=== PATIENT | female | born 2000 | race African-American/Black ===

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

== ENCOUNTER 2020-03-21 17:10 | Emergency (ER) | payer OTHER, SELFPAY ==
--- OUTSIDE RECORDS SUMMARY | 2020-03-21 17:12 | XMS REPORT ---
:2000 Author Organization [facility] t Address [address] [place] [address] Dr. De La Rosa [address] [place] [id number] Care Team Providers Name Role Phone Unavailable Unavailable Unavailable Problems This patient has no known problems. Allergies, Adverse Reactions, Alerts This patient has no known allergies or adverse reactions. Medications This patient has no known medications.
--- NOTE | 2020-03-21 19:26 | ER ---
Nurse's Notes [facility] Name: Isaac Hollins Age: 19 yrs Sex: Female : 2000 Arrival Date: 03/21/2020 Time: 17:14 Bed 16 Private MD: Diagnosis: Streptococcal tonsillitis Presentation: 03/21 17:18 Chief complaint: Patient states: sore throat x 1 day. Coronavirus screen: Proceed with sv normal triage. Patient denies a cough. Patient denies shortness of breath or difficulty breathing. Patient denies measured and/or subjective temperature greater than 100.4F prior to today's visit. Patient denies travel on a cruise ship or to a country the [facility] currently lists as an affected area. Patient denies contact with known and/or suspected case of COVID-19. Ebola Screen: No symptoms or risks identified at this time. Risk Assessment: Do you want to hurt yourself or someone else? Patient reports no desire to harm self or others. Onset of symptoms was March 20, 2020. 17:18 Method Of Arrival: Ambulatory sv 17:18 Acuity: JANIE 4 sv 17:19 Initial Sepsis Screen: Does the patient meet any 2 criteria? No. Patient's initial sv sepsis screen is negative. Does the patient have a suspected source of infection? No. Patient's initial sepsis screen is negative. Triage Assessment: 17:22 General: Appears in no apparent distress. comfortable, Behavior is calm, cooperative, sv appropriate for age. Pain: Complains of pain in left aspect of posterior pharynx and right aspect of posterior pharynx. EENT: Oral mucosa is moist. Throat is clear has patchy exudate has enlarged tonsils bilaterally. Neuro: Level of Consciousness is awake, alert, obeys commands, Gait is steady. Respiratory: Respiratory effort is even, unlabored. Historical: - Allergies: 17:15 No Known Allergies; sv - PMHx: 17:15 None; sv - PSHx: 17:15 None; sv - Immunization history:: Adult Immunizations up to date. - Social history:: Smoking status: Patient denies any tobacco usage or history of. Screenin:15 Abuse screen: Denies threats or abuse. Nutritional screening: No deficits noted. jb4 Tuberculosis screening: No symptoms or risk factors identified. Fall Risk None identified. Assessment: 19:15 General: Appears in no apparent distress. comfortable, Behavior is calm, cooperative, jb4 appropriate for age. Pain: Complains of pain in throat Pain does not radiate. Pain currently is 4 out of 10 on a pain scale. Neuro: Level of Consciousness is awake, alert, obeys commands, Oriented to person, place, time, situation. Cardiovascular: Patient's skin is warm and dry. Respiratory: Airway is patent Respiratory effort is even, unlabored, Respiratory pattern is regular, symmetrical. GI: No signs and/or symptoms were reported involving the gastrointestinal system. : No signs and/or symptoms were reported regarding the genitourinary system. EENT: Reports pain in Throat. Derm: Skin is intact, Skin is dry, Skin is normal, Skin temperature is warm. Musculoskeletal: Circulation, motion, and sensation intact. Range of motion: intact in all extremities. Vital Signs: 17:19 BP 121 / 70; Pulse 88; Resp 16; Temp 98.2; Pulse Ox 100% ; Weight 83.01 kg; Height 5 sv ft. 10 in. (177.80 cm); 19:30 BP 116 / 79; Pulse 88; Resp 16; Pulse Ox 100% on R/A; jb4 17:19 Body Mass Index 26.26 (83.01 kg, 177.80 cm) sv ED Course: 17:14 Patient arrived in ED. mr 17:14 Arm band placed on. sv 17:19 Triage completed. sv 18:44 Herman Burnett MD is Attending Physician. [facility] 18:50 Benedict Patino, RN is Primary Nurse. em 19:15 Patient has correct armband on for positive identification. Bed in low position. Call jb4 light in reach. Side rails up X 1. Pulse ox on. NIBP on. 19:35 No provider procedures requiring assistance completed. Patient did not have IV access jb4 during this emergency room visit. 19:48 Primary Nurse role handed off by Benedict Patino, RU jb4 19:48 Paxton Graham, RU is Primary Nurse. jb4 Administered Medications: 19:35 Drug: Augmentin 875 mg Route: PO; jb4 19:35 Follow up: Response: Medication administered at discharge. jb4 Outcome: 19:25 Discharge ordered by . [facility] 19:35 Discharged to home ambulatory. jb4 19:35 Condition: stable 19:35 Discharge instructions given to patient, Instructed on discharge instructions, follow up and referral plans. medication usage, Demonstrated understanding of instructions, follow-up care, medications, Prescriptions given X 1. 19:48 Patient left the ED. jb4 Signatures: Danielle Vogel, RN Herman Cat MD MD cha Rivera, Mary mr Benedict Patino RN RN em Bryson, James, RN RN jb4 Corrections: (The following items were deleted from the chart) 17:21 17:19 Pulse 88bpm; Resp 16bpm; Pulse Ox 100%; Temp 98.2F; 83.01 kg; Height 5 ft. 10 sv in.; BMI: 26.2; sv
--- NOTE | 2020-03-21 19:27 | EDPHYS ---
Physician Documentation [facility] Name: Isaac Hollins Age: 19 yrs Sex: Female : 2000 Arrival Date: 03/21/2020 Time: 17:14 Bed 16 Private MD: ED Physician Herman Burnett HPI: 03/21 19:21 This 19 yrs old Black Female presents to ER via Ambulatory with complaints of Sore franco Throat. 19:21 The patient presents with sore throat. The patient describes throat pain as burning, franco raw, scratchy. Onset: The symptoms/episode began/occurred 2 day(s) ago. Severity of symptoms: At their worst the symptoms were mild, moderate, in the emergency department the symptoms are unchanged. Modifying factors: The symptoms are alleviated by nothing, the symptoms are aggravated by fluids, swallowing. Associated signs and symptoms: Pertinent positives: Sore throat. The patient has not experienced similar symptoms in the past. Historical: - Allergies: 17:15 No Known Allergies; sv - PMHx: 17:15 None; sv - PSHx: 17:15 None; sv - Immunization history:: Adult Immunizations up to date. - Social history:: Smoking status: Patient denies any tobacco usage or history of. ROS: 19:23 Constitutional: Negative for fever, chills, and weight loss, Eyes: Negative for injury, franco pain, redness, and discharge, Neck: Negative for injury, pain, and swelling, Cardiovascular: Negative for chest pain, palpitations, and edema, Respiratory: Negative for shortness of breath, cough, wheezing, and pleuritic chest pain, Abdomen/GI: Negative for abdominal pain, nausea, vomiting, diarrhea, and constipation, Back: Negative for injury and pain, : Negative for injury, bleeding, discharge, and swelling, MS/Extremity: Negative for injury and deformity, Skin: Negative for injury, rash, and discoloration, Neuro: Negative for headache, weakness, numbness, tingling, and seizure, Psych: Negative for depression, anxiety, suicide ideation, homicidal ideation, and hallucinations, Allergy/Immunology: Negative for hives, rash, and allergies, Endocrine: Negative for neck swelling, polydipsia, polyuria, polyphagia, and marked weight changes, Hematologic/Lymphatic: Negative for swollen nodes, abnormal bleeding, and unusual bruising. 19:23 ENT: Positive for sore throat. Exam: 19:23 Constitutional: This is a well developed, well nourished patient who is awake, alert, franco and in no acute distress. Head/Face: Normocephalic, atraumatic. Eyes: Pupils equal round and reactive to light, extra-ocular motions intact. Lids and lashes normal. Conjunctiva and sclera are non-icteric and not injected. Cornea within normal limits. Periorbital areas with no swelling, redness, or edema. Neck: Trachea midline, no thyromegaly or masses palpated, and no cervical lymphadenopathy. Supple, full range of motion without nuchal rigidity, or vertebral point tenderness. No Meningismus. Chest/axilla: Normal chest wall appearance and motion. Nontender with no deformity. No lesions are appreciated. Cardiovascular: Regular rate and rhythm with a normal S1 and S2. No gallops, murmurs, or rubs. Normal PMI, no JVD. No pulse deficits. Respiratory: Lungs have equal breath sounds bilaterally, clear to auscultation and percussion. No rales, rhonchi or wheezes noted. No increased work of breathing, no retractions or nasal flaring. Abdomen/GI: Soft, non-tender, with normal bowel sounds. No distension or tympany. No guarding or rebound. No evidence of tenderness throughout. Back: No spinal tenderness. No costovertebral tenderness. Full range of motion. Skin: Warm, dry with normal turgor. Normal color with no rashes, no lesions, and no evidence of cellulitis. MS/ Extremity: Pulses equal, no cyanosis. Neurovascular intact. Full, normal range of motion. Neuro: Awake and alert, GCS 15, oriented to person, place, time, and situation. Cranial nerves II-XII grossly intact. Motor strength 5/5 in all extremities. Sensory grossly intact. Cerebellar exam normal. Normal gait. Psych: Awake, alert, with orientation to person, place and time. Behavior, mood, and affect are within normal limits. 19:23 ENT: Posterior pharynx: Tonsils: bilaterally enlarged, Uvula: normal, swelling, that is mild, erythema, that is moderate, exudate, is not appreciated, peritonsillar mass, is not appreciated, pooling of secretions, is not appreciated. Vital Signs: 17:19 BP 121 / 70; Pulse 88; Resp 16; Temp 98.2; Pulse Ox 100% ; Weight 83.01 kg; Height 5 sv ft. 10 in. (177.80 cm); 19:30 BP 116 / 79; Pulse 88; Resp 16; Pulse Ox 100% on R/A; jb4 17:19 Body Mass Index 26.26 (83.01 kg, 177.80 cm) sv MDM: 18:44 Patient medically screened. [facility] 19:24 Data reviewed: vital signs, nurses notes, lab test result(s). [facility] 19:26 Differential diagnosis: cocksackie virus, epiglottitis, group A strep tonsillitis, franco mononucleosis, tonsillitis, upper respiratory infection, uvulitis. Data interpreted: facility practice specialist: not applicable for this patient encounter. Test interpretation: by ED physician or midlevel provider: not applicable. Counseling: I had a detailed discussion with the patient and/or guardian regarding: the historical points, exam findings, and any diagnostic results supporting the discharge/admit diagnosis, lab results, the need for outpatient follow up, for definitive care. ED course: strep pos, treated, pt explained results, non toxic. 03/21 17:20 Order name: Strep sv Administered Medications: 19:35 Drug: Augmentin 875 mg Route: PO; jb4 19:35 Follow up: Response: Medication administered at discharge. jb4 Disposition: 03/21/20 19:25 Discharged to Home. Impression: Streptococcal tonsillitis. - Condition is Stable. - Discharge Instructions: Sore Throat, Tonsillitis, Tonsillitis, [id number], Sore Throat, [id number]. - Prescriptions for Augmentin 875- 125 mg Oral Tablet - take 1 tablet by ORAL route every 12 hours for 10 days; 20 tablet. - Medication Reconciliation Form, Thank You Letter, Antibiotic Education, Prescription Opioid Use form. - Follow up: Private Physician; When: 2 - 3 days; Reason: Recheck today's complaints, Re-evaluation by your physician. - Problem is new. - Symptoms have improved. Signatures: Dispatcher [employer] EDMS Danielle Vogel RN RN sv Anderson, Corey, MD MD cha Bryson, James, RN RN jb4 Corrections: (The following items were deleted from the chart) 19:48 19:25 03/21/2020 19:25 Discharged to Home. Impression: Streptococcal tonsillitis. jb4 Condition is Stable. Forms are Medication Reconciliation Form, Thank You Letter, Antibiotic Education, Prescription Opioid Use. Follow up: Private Physician; When: 2 - 3 days; Reason: Recheck today's complaints, Re-evaluation by your physician. Problem is new. Symptoms have improved. franco
[2020-03-21] MEDS ORDERED: AMOX/K CLAV 875 MG TAB ONE (19:39)
[2020-03-21 19:54] VITALS: BP 121/70; TEMP 98.2; O2SAT 100
== END 2020-03-21 19:48 | disposition home or self-care (01) ==
LOC: ER 17:10
DX: J03.00 Acute streptococcal tonsillitis, unspecified (principal)
CPT/HCPCS: 87081; 99283

== ENCOUNTER 2021-03-21 04:25 | Emergency (ER) | payer SELFPAY ==
--- OUTSIDE RECORDS SUMMARY | 2021-03-21 04:28 | XMS REPORT | Continuity of Care Document ---
:2000 Author Organization [facility] t Address [address] [place] [address] Dr. De La Rosa [address] [place] [id number] Care Team Providers Name Role Phone Unavailable Unavailable Unavailable Problems This patient has no known problems. Allergies, Adverse Reactions, Alerts This patient has no known allergies or adverse reactions. Medications This patient has no known medications. Procedures This patient has no known procedures. Results This patient has no known results.
[2021-03-21 05:03] LABS: Absolute Lymphocytes (CBC) 2.8 K/uL (0.7-4.9); Basophils % 0.6 % (0-1.3); Hematocrit 36.2 % (36.0-45.0); Lymphocytes % 24.1 % (15.3-44.8); MPV 8.4 fL (7.6-11.3); RBC Red Blood Cell Count 4.54 M/uL (3.86-4.86)
[2021-03-21] MEDS ORDERED: NA CHLORIDE 0.9% 1,000 ML ONE (05:12)
[2021-03-21 05:13] LABS: Protime INR 0.96
[2021-03-21 05:34] LABS: ALT/SGPT 14 U/L (12-78); AST/SGOT 11 U/L (15-37); Albumin 3.8 g/dL (3.4-5.0); Alkaline Phosphatase 86 U/L (45-117); BUN Blood Urea Nitrogen 7 mg/dL (7-18); Bicarbonate 25 mmol/L (21-32); Bilirubin Direct < 0.1 mg/dL (0-0.2); Bilirubin Total 0.3 mg/dL (0.2-1.0); Creatine Phosphokinase 103 U/L (26-192); Glucose Level 99 mg/dL (74-106); Potassium 3.3 mmol/L (3.5-5.1); Protein, Total 7.6 g/dL (6.4-8.2); Sodium Level 143 mmol/L (136-145); Troponin (Emerg Dept Use Only) < 0.02 ng/mL (0.0-0.045)
[2021-03-21 06:47] LABS: Urine Blood Negative (Negative); Urine Glucose Negative (Negative); Urine Protein Negative (Negative)
[2021-03-21 07:27] LABS: Barbiturates NEGATIVE (NEGATIVE); Benzodiazepines NEGATIVE (NEGATIVE); Cocaine NEGATIVE (NEGATIVE); METHAMPHETAM NEGATIVE (NEGATIVE); Methadone NEGATIVE (NEGATIVE); Opiates NEGATIVE (NEGATIVE); Phencyclidine NEGATIVE (NEGATIVE); THC Cannibis POSITIVE (NEGATIVE)
--- NOTE | 2021-03-21 07:37 | EDPHYS ---
Physician Documentation [facility] Name: Isaac Hollins Age: 20 yrs Sex: Female : 2000 Arrival Date: 03/21/2021 Time: 04:35 Bed 6 Private MD: ED Physician Peng Sandoval HPI: 03/21 05:06 This 20 yrs old Black Female presents to ER via Ambulatory with complaints of Anxiety, mh7 Chest Pain. 05:06 The patient presents to the emergency department with anxiety, over unknown mh7 circumstances. Onset: The symptoms/episode began/occurred today. Past psychiatric history: Prior diagnosis: no previous psychiatric diagnosis known, Psychiatric medications include: none, Primary psychiatric physician: the patient does not have a primary psychiatric physician, the patient has not had a prior suicide gesture, the patient does not have a previous inpatient psychiatric history. Associated signs and symptoms: Pertinent positives; anxiety, chest pain, substance abuse, Pertinent negatives: abdominal pain, chills, delusions, depression, fever, hallucinations, headache, homicidal ideation, nausea, night sweats, palpitations, paranoia, shortness of breath, suicide ideation, tremor, vomiting. Severity of symptoms: At their worst the symptoms were moderate today, in the emergency department the symptoms have improved mildly. States that she was driving this morning then started feeling anxious. She admits to drinking alcohol and smoking marijuana.. 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 - Social history:: Smoking status: Patient reports the use of cigarette tobacco products, denies chronic smoking, but will smoke occasionally, Patient uses alcohol, occasionally. pt states she has had a few drinks tonight. Patient/guardian denies using street drugs. ROS: 05:06 Constitutional: Negative for fever, chills, and weight loss, Eyes: Negative for injury, mh7 pain, redness, and discharge, ENT: Negative for injury, pain, and discharge, Neck: Negative for injury, pain, and swelling, Respiratory: Negative for shortness of breath, cough, wheezing, and pleuritic chest pain, Abdomen/GI: Negative for abdominal pain, nausea, vomiting, diarrhea, and constipation, Back: Negative for injury and pain, : Negative for injury, bleeding, discharge, and swelling, MS/Extremity: Negative for injury and deformity, Skin: Negative for injury, rash, and discoloration, Neuro: Negative for headache, weakness, numbness, tingling, and seizure, Allergy/Immunology: Negative for hives, rash, and allergies, Endocrine: Negative for neck swelling, polydipsia, polyuria, polyphagia, and marked weight changes, Hematologic/Lymphatic: Negative for swollen nodes, abnormal bleeding, and unusual bruising. Exam: 05:06 Head/Face: Normocephalic, atraumatic. Eyes: Pupils equal round and reactive to light, mh7 extra-ocular motions intact. Lids and lashes normal. Conjunctiva and sclera are non-icteric and not injected. Cornea within normal limits. Periorbital areas with no swelling, redness, or edema. Neck: Trachea midline, no thyromegaly or masses palpated, and no cervical lymphadenopathy. Supple, full range of motion without nuchal rigidity, or vertebral point tenderness. No Meningismus. Chest/axilla: Normal chest wall appearance and motion. Nontender with no deformity. No lesions are appreciated. Cardiovascular: Regular rate and rhythm with a normal S1 and S2. No gallops, murmurs, or rubs. Normal PMI, no JVD. No pulse deficits. Respiratory: Lungs have equal breath sounds bilaterally, clear to auscultation and percussion. No rales, rhonchi or wheezes noted. No increased work of breathing, no retractions or nasal flaring. Abdomen/GI: Soft, non-tender, with normal bowel sounds. No distension or tympany. No guarding or rebound. No evidence of tenderness throughout. Back: No spinal tenderness. No costovertebral tenderness. Full range of motion. Skin: Warm, dry with normal turgor. Normal color with no rashes, no lesions, and no evidence of cellulitis. MS/ Extremity: Pulses equal, no cyanosis. Neurovascular intact. Full, normal range of motion. Neuro: Awake and alert, GCS 15, oriented to person, place, time, and situation. Cranial nerves II-XII grossly intact. Motor strength 5/5 in all extremities. Sensory grossly intact. Cerebellar exam normal. Normal gait. 05:06 Constitutional: The patient appears in no acute distress, alert, awake, anxious. 05:06 Psych: Behavior/mood is cooperative, anxious, Affect is calm, Oriented to person, place, time, Patient has no thoughts/intents to harm self or others. Judgement / Insight is normal. Memory is normal. Delusions/hallucinations are not present. Vital Signs: 04:36 BP 124 / 74; Pulse 88; Resp 16 S; Temp 98.1(O); Pulse Ox 96% on R/A; Weight 75.75 kg bb (R); Height 5 ft. 9 in. (175.26 cm) (R); Pain 0/10; 04:37 BP 124 / 74; Pulse 105; Resp 16; Pulse Ox 100% ; ea 05:12 BP 100 / 60; Pulse 78; Resp 18; Pulse Ox 98% ; ea 04:36 Body Mass Index 24.66 (75.75 kg, 175.26 cm) bb MDM: 07:34 Differential diagnosis: drug withdrawal. Alcohol Intoxication, Substance Abuse. Data [facility] reviewed: vital signs, nurses notes, lab test result(s), cardiac enzymes, CBC, drug level(s), electrolytes, urinalysis, urine drug screen, UPT: negative EKG, radiologic studies, plain films. Data interpreted: Pulse oximetry: on room air is 98 %. Interpretation: normal. Counseling: I had a detailed discussion with the patient and/or guardian regarding: the historical points, exam findings, and any diagnostic results supporting the discharge/admit diagnosis, lab results, radiology results, the need for outpatient follow up, to return to the emergency department if symptoms worsen or persist or if there are any questions or concerns that arise at home. Response to treatment: the patient's symptoms have resolved after treatment, the patient's blood pressure is in an acceptable range, mental status has returned to baseline, the patient no longer shows bradycardia, the patient is not short of breath, the patient is not tachycardic, the patient's pain is gone, the patient's temperature has normalized. 07:[address] [facility] 03/21 04:42 Order name: Acetaminophen [facility] 03/21 04:42 Order name: Basic Metabolic Panel [facility] 03/21 04:42 Order name: CBC with Diff [facility] 03/21 04:42 Order name: ETOH Level [facility] 03/21 04:42 Order name: Hepatic Function [facility] 03/21 04:42 Order name: PT-INR [facility] 03/21 04:42 Order name: Ptt, Activated [facility] 03/21 04:42 Order name: Salicylate; Complete Time: 06:07 [facility] 03/21 04:42 Order name: Urine Drug Screen; Complete Time: 07:33 [facility] 03/21 04:43 Order name: Acetaminophen Level; Complete Time: 05:42 EDMS 03/21 04:43 Order name: Basic Metabolic Panel; Complete Time: 05:42 EDMS 03/21 04:43 Order name: CBC with Automated Diff; Complete Time: 05:11 EDMS 03/21 04:43 Order name: Alcohol Serum/Plasma; Complete Time: 05:42 EDMS 03/21 04:43 Order name: Liver (Hepatic) Function; Complete Time: 05:42 EDMS 03/21 04:42 Order name: Urine Test (obtain specimen); Complete Time: 06:42 [facility] 03/21 04:42 Order name: EKG; Complete Time: 04:43 [facility] 03/21 04:42 Order name: EKG - Nurse/Tech; Complete Time: 04:43 [facility] 03/21 04:42 Order name: IV Saline Lock; Complete Time: 04:58 [facility] 03/21 04:42 Order name: Labs collected and sent; Complete Time: 04:58 [facility] 03/21 04:42 Order name: Urine Dipstick-Ancillary (obtain specimen); Complete Time: 06:41 [facility] 03/21 04:43 Order name: Protime (+INR); Complete Time: 05:27 [facility] 03/21 04:43 Order name: PTT, Activated Partial Thromb; Complete Time: 05:27 [facility] 03/21 04:43 Order name: Chest Single View XRAY [facility] 03/21 04:43 Order name: Troponin (emerg Dept Use Only); Complete Time: 05:42 [facility] 03/21 04:43 Order name: CPK; Complete Time: 05:42 [facility] 03/21 06:47 Order name: Urine Dipstick-Ancillary; Complete Time: 07:22 [facility] 03/21 06:49 Order name: Urine --Ancillary (enter results) eb Administered Medications: 05:00 Drug: NS 0.9% 1000 ml Route: IV; Rate: 1000 ml; Site: right antecubital; ea Disposition: 03/21/21 07:37 Discharged to Home. Impression: Anxiety Reaction, Marijuana Use. - Condition is Stable. - Discharge Instructions: Cannabis Use Disorder, Panic Attacks, [id number]. - Medication Reconciliation Form, Thank You Letter, Antibiotic Education, Prescription Opioid Use form. - Follow up: Private Physician; When: 1 - 2 days; Reason: Worsening of condition, Recheck today's complaints, Continuance of care, Re-evaluation by your physician. - Problem is new. - Symptoms have improved. Signatures: Dispatcher [employer] EDMS Danielle Vogel RN RN Fay Blanca RN RN Janelle Pettit RN RN ea Holmes, Maurice, MD MD mh7 Corrections: (The following items were deleted from the chart) 06:41 04:42 Suicide Screening ([place]) ordered. mh7 07:57 07:37 03/21/2021 07:37 Discharged to Home. Impression: Anxiety Reaction, Marijuana Use. sv Condition is Stable. Forms are Medication Reconciliation Form, Thank You Letter, Antibiotic Education, Prescription Opioid Use. Follow up: Private Physician; When: 1 - 2 days; Reason: Worsening of condition, Recheck today's complaints, Continuance of care, Re-evaluation by your physician. Problem is new. Symptoms have improved. mh7
--- NOTE | 2021-03-21 07:37 | ER ---
Nurse's Notes [facility] Name: Isaac Hollins Age: 20 yrs Sex: Female : 2000 Arrival Date: 03/21/2021 Time: 04:35 Bed 6 Private MD: Diagnosis: Anxiety Reaction, Marijuana Use Presentation: 03/21 04:36 Chief complaint: Patient states: she was driving home and started feeling light-headed, bb shaking, and her chest felt funny, pt states she has a few drinks tonight. She has had similar symptoms in the past but was not checked at that time. Coronavirus screen: At this time, the client does not indicate any symptoms associated with coronavirus-19. Ebola Screen: No symptoms or risks identified at this time. Initial Sepsis Screen: Does the patient meet any 2 criteria? No. Patient's initial sepsis screen is negative. Does the patient have a suspected source of infection? No. Patient's initial sepsis screen is negative. Risk Assessment: Do you want to hurt yourself or someone else? Patient reports no desire to harm self or others. Onset of symptoms was March 21, 2021. 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 - Social history:: Smoking status: Patient reports the use of cigarette tobacco products, denies chronic smoking, but will smoke occasionally, Patient uses alcohol, occasionally. pt states she has had a few drinks tonight. Patient/guardian denies using street drugs. Screenin:37 Abuse screen: Denies threats or abuse. Nutritional screening: No deficits noted. ea Tuberculosis screening: No symptoms or risk factors identified. Fall Risk None identified. Assessment: 04:40 General: Appears in no apparent distress. Behavior is anxious, Smells of alcohol. Pain: ea Complains of pain in chest Pain does not radiate. Pain began suddenly. Cardiovascular: Patient's skin is warm and dry. Respiratory: Airway is patent Respiratory effort is even, unlabored, Respiratory pattern is regular, symmetrical. Derm: No signs and/or symptoms reported regarding the dermatologic system. 07:56 Reassessment: Patient appears in no apparent distress at this time. Patient and/or sv family updated on plan of care and expected duration. Pain level reassessed. Patient is alert, oriented x 3, equal unlabored respirations, skin warm/dry/pink. Patient states feeling better. Vital Signs: 04:36 BP 124 / 74; Pulse 88; Resp 16 S; Temp 98.1(O); Pulse Ox 96% on R/A; Weight 75.75 kg bb (R); Height 5 ft. 9 in. (175.26 cm) (R); Pain 0/10; 04:37 BP 124 / 74; Pulse 105; Resp 16; Pulse Ox 100% ; ea 05:12 BP 100 / 60; Pulse 78; Resp 18; Pulse Ox 98% ; ea 04:36 Body Mass Index 24.66 (75.75 kg, 175.26 cm) ED Course: 04:35 Patient arrived in ED. bb 04:36 Peng Sandoval MD is Attending Physician. [facility] 04:37 Janelle Gabriel, RN is Primary Nurse. ea 04:37 Patient has correct armband on for positive identification. Bed in low position. Call ea light in reach. Side rails up X 1. forestry adviser on. Pulse ox on. NIBP on. 04:38 Triage completed. bb 04:39 Arm band placed on right wrist. Patient placed in an exam room, on a stretcher, on ea pulse oximetry. 04:45 Inserted saline lock: 20 gauge in right antecubital area, using aseptic technique. ea Blood collected. Patient maintains SpO2 saturation greater than 95% on room air. 04:58 Chest Single View XRAY In Process Unspecified. EDMS 07:11 Primary Nurse role handed off by Janelle Gabriel, RN sv 07:11 Danielle Vogel, RU is Primary Nurse. sv 07:11 Acetaminophen Sent. sv 07:11 Basic Metabolic Panel Sent. sv 07:11 CBC with Diff Sent. sv 07:11 Ptt, Activated Sent. sv 07:11 PT-INR Sent. sv 07:11 Hepatic Function Sent. sv 07:11 ETOH Level Sent. sv 07:56 No provider procedures requiring assistance completed. IV discontinued, intact, sv bleeding controlled, No redness/swelling at site. Pressure dressing applied. Administered Medications: 05:00 Drug: NS 0.9% 1000 ml Route: IV; Rate: 1000 ml; Site: right antecubital; ea Outcome: 07:37 Discharge ordered by MD. campbell 07:56 Discharged to home ambulatory, with family. sv 07:56 Condition: stable 07:56 Discharge instructions given to patient, Instructed on discharge instructions, follow up and referral plans. Demonstrated understanding of instructions, follow-up care. 07:57 Patient left the ED. sv Signatures: Dispatcher [employer] EDDanielle Jefferson RN RN sv Ballard, Brenda RN RN Janelle Pettit RN RN ea Holmes, Maurice, MD MD mh7 Corrections: (The following items were deleted from the chart) 05:00 04:40 General: Appears in no apparent distress. Behavior is calm, cooperative, ea appropriate for age, ea
[2021-03-21 08:02] VITALS: TEMP 98.1
[2021-03-21 08:04] VITALS: BP 100/60; O2SAT 98
--- NOTE | 2021-03-21 09:40 | RAD REPORT ---
EXAM DESCRIPTION: RAD - Chest Single View - 03/21/2021 4:59 am CLINICAL HISTORY: CHEST PAIN Chest pain. COMPARISON: No comparisons FINDINGS: Portable technique limits examination quality. The lungs are grossly clear. The heart is normal in size. No displaced fractures. IMPRESSION: No acute intrathoracic process suspected.
--- NOTE | 2021-03-22 12:14 | EKG ---
Test Date: 2021-03-21 Test Time: 04:32:41 Dry Cleaner Hand: SHRUTHI MEASUREMENT RESULTS: Intervals: Rate: 97 MD: 144 QRSD: 76 QT: 362 QTc: 459 [place]: P: 67 MD: 144 QRS: 72 T: 56 INTERPRETIVE STATEMENTS: Normal sinus rhythm Normal ECG No previous ECG available for comparison Electronically Signed On 03-22-21 12:12:02 CDT by Jakob Ventura
== END 2021-03-21 07:57 | disposition home or self-care (01) ==
LOC: ER 04:25
DX: F41.1 Generalized anxiety disorder (principal); F12.90 Cannabis use, unspecified, uncomplicated; F17.210 Nicotine dependence, cigarettes, uncomplicated; R07.9 Chest pain, unspecified
CPT/HCPCS: 36415; 71045; 80048; 80076; 80307; 80320; 80329; 81003; 81025; 82550; 84484; 85025; 85610; 85730; 93005; 99285; J7030

== ENCOUNTER 2021-06-14 13:32 | Emergency (ER) | payer SELFPAY ==
--- OUTSIDE RECORDS SUMMARY | 2021-06-14 13:33 | XMS REPORT | Continuity of Care Document ---
:[address] [facility] t Address [address] [place] [place] [address] Care Team Providers Name Role Phone Unavailable Unavailable Unavailable Problems This patient has no known problems. Allergies, Adverse Reactions, Alerts This patient has no known allergies or adverse reactions. Medications This patient has no known medications. Procedures This patient has no known procedures. Results This patient has no known results.
--- NOTE | 2021-06-14 14:21 | ER ---
Nurse's Notes [facility] Name: Isaac Hollins Age: 20 yrs Sex: Female : 2000 Arrival Date: 06/14/2021 Time: 14:04 Bed Waiting Private MD: Diagnosis: Laceration without foreign body of foot Presentation: 06/14 14:20 Chief complaint: Patient states: Cut by a metal piece of her bag on the bottom of L ll1 foot [place] night. No fever. Coronavirus screen: Client denies travel out of the [place] in the last 14 days. At this time, the client does not indicate any symptoms associated with coronavirus-19. Ebola Screen: Patient denies travel to an Ebola-affected area in the 21 days before illness onset. Complicating Factors: There are no complicating factors for this patient. Initial Sepsis Screen: Does the patient meet any 2 criteria? No. Patient's initial sepsis screen is negative. Does the patient have a suspected source of infection? Yes: Skin breakdown/wound. Risk Assessment: Do you want to hurt yourself or someone else? Patient reports no desire to harm self or others. Onset of symptoms was June 12, 2021. 14:20 Method Of Arrival: Ambulatory ll1 14:20 Acuity: JANIE 4 ll1 Triage Assessment: 14:20 General: Appears in no apparent distress. Behavior is calm, cooperative, appropriate ll1 for age. Pain: Complains of pain in arch of left foot Quality of pain is described as aching. Derm: <3 cm laceration, no drainage from site. No fever. Injury Description: Laceration sustained to arch of left foot is clean, 0.5 to 2.5 cm long, not bleeding, was sustained 2 days ago. is bleeding no active bleeding noted. Historical: - Allergies: 14:19 No Known Allergies; ll1 - PMHx: 14:19 None; ll1 - PSHx: 14:19 None; ll1 - Immunization history:: Last tetanus immunization: unknown. - Social history:: Smoking status: Patient denies any tobacco usage or history of. Screenin:21 Abuse screen: Denies threats or abuse. Nutritional screening: No deficits noted. ll1 Tuberculosis screening: No symptoms or risk factors identified. Fall Risk Gait- Impaired (20 pts.). Total Reddy Fall Scale indicates No Risk (0-24 pts). Assessment: 14:21 Injury Description: Laceration is clean, 0.5 to 2.5 cm long. ll1 14:21 Musculoskeletal: Circulation, motion, and sensation intact. Capillary refill < 3 ll1 seconds. Vital Signs: 14:20 BP 110 / 69; Pulse 67; Resp 17; Temp 98.3; Pulse Ox 100% ; Weight 83.46 kg; Height 5 ll1 ft. 9 in. (175.26 cm); Pain 6/10; 14:20 Body Mass Index 27.17 (83.46 kg, 175.26 cm) ll1 ED Course: 14:04 Patient arrived in ED. ds1 14:19 Arm band placed on. ll1 14:21 Yani Zhang FNP-C is [facility]. kb 14:21 Kun Barragan MD is Attending Physician. kb 14:21 Triage completed. ll1 14:21 Patient has correct armband on for positive identification. Bed in low position. ll1 Cardiac monitoring not applicable on this patient. 14:26 No provider procedures requiring assistance completed. Patient did not have IV access ll1 during this emergency room visit. Administered Medications: No medications were administered Outcome: 14: Discharge ordered by . kb 14:26 Patient left the ED. ll1 14:26 Discharged to home ambulatory. ll1 14:26 Condition: stable 14:26 Discharge instructions given to patient, Instructed on discharge instructions, follow up and referral plans. medication usage, wound care, Demonstrated understanding of instructions, follow-up care, medications, wound care, Prescriptions given X 1. Signatures: Yani Zhang FNP-C FNP-Briana Hernandez ds1 Mitul Duenas, RN RN ll1
--- NOTE | 2021-06-14 14:21 | EDPHYS ---
Physician Documentation [facility] Name: Isaac Hollins Age: 20 yrs Sex: Female : 2000 Arrival Date: 06/14/2021 Time: 14:04 Bed Waiting Private MD: ED Physician Kun Barragan HPI: 06/14 14:42 This 20 yrs old Black Female presents to ER via Ambulatory with complaints of kb Laceration To Foot. 14:42 The patient has a laceration related to: stepped on a piece of metal in bag occurred at home, and there are no complicating factors. The injury was accidental. The laceration(s) is(are) located on the arch of left foot. Onset: The symptoms/episode began/occurred 3 day(s) ago. Associated signs and symptoms: The patient has no apparent associated signs or symptoms. The patient has not experienced similar symptoms in the past. The patient has not recently seen a physician. Patient reports she stepped on a piece of metal that was on her back on Tuesday causing laceration to the bottom of her foot. Has been cleaning with peroxide and covering with a Band-Aid. . Historical: - Allergies: 14:19 No Known Allergies; ll1 - PMHx: 14:19 None; ll1 - PSHx: 14:19 None; ll1 - Immunization history:: Last tetanus immunization: unknown. - Social history:: Smoking status: Patient denies any tobacco usage or history of. ROS: 14:42 Constitutional: Negative for fever, chills, and weight loss. 14:42 Skin: Positive for laceration(s), of the arch of left foot. 14:42 All other systems are negative. Exam: 14:41 Constitutional: This is a well developed, well nourished patient who is awake, alert, kb and in no acute distress. Head/Face: Normocephalic, atraumatic. ENT: Moist Mucous membranes Respiratory: Respirations even and unlabored. No increased work of breathing, no retractions or nasal flaring. MS/ Extremity: Pulses equal, no cyanosis. Neurovascular intact. Full, normal range of motion. Neuro: Awake and alert, GCS 15, oriented to person, place, time, and situation. Moves all extremities. Normal gait. Psych: Awake, alert, with orientation to person, place and time. Behavior, mood, and affect are within normal limits. 14:41 Skin: injury, laceration(s), the wound is approximately 1.5 cm(s), of the arch of left foot, that can be described as clean, no foreign body, linear, without bleeding. Vital Signs: 14:20 BP 110 / 69; Pulse 67; Resp 17; Temp 98.3; Pulse Ox 100% ; Weight 83.46 kg; Height 5 ll1 ft. 9 in. (175.26 cm); Pain 6/10; 14:20 Body Mass Index 27.17 (83.46 kg, 175.26 cm) ll1 MDM: 14:21 Patient medically screened. kb 14:42 Data reviewed: vital signs, nurses notes. Data interpreted: Pulse oximetry: on room air kb is 100 %. Interpretation: normal. Counseling: I had a detailed discussion with the patient and/or guardian regarding: the historical points, exam findings, and any diagnostic results supporting the discharge/admit diagnosis, the need for outpatient follow up, a family practitioner, to return to the emergency department if symptoms worsen or persist or if there are any questions or concerns that arise at home. Administered Medications: No medications were administered Disposition: 16:04 Co-signature as Attending Physician, Kun Barragan MD. rn Disposition Summary: 06/14/21 14:21 Discharge Ordered Location: Home kb Condition: Stable kb Diagnosis - Laceration without foreign body of foot kb Followup: kb - With: Emergency Department - When: As needed - Reason: Worsening of condition Followup: kb - With: Private Physician - When: 2 - 3 days - Reason: Recheck today's complaints, Continuance of care, Re-evaluation by your physician Discharge Instructions: - Discharge Summary Sheet kb - Nonsutured Laceration Care kb Forms: - Medication Reconciliation Form kb - Thank You Letter kb - Antibiotic Education kb - Prescription Opioid Use kb - Work release form ll1 Prescriptions: - Cephalexin 500 mg Oral Capsule - take 1 capsule by ORAL route every 8 hours for 10 days; 30 capsule; Refills: 0, kb Product Selection Permitted Signatures: Yani Zhang FNP-C FNP-Ckb Nieto, Roman, MD MD rn Lewis, Lynsay, RN RN ll1
[2021-06-14 15:04] VITALS: BP 110/69; TEMP 98.3; O2SAT 100
== END 2021-06-14 14:26 | disposition home or self-care (01) ==
LOC: ER 13:32
DX: S91.312A Laceration without foreign body, left foot, initial encounter (principal); W26.8XXA Contact with other sharp object(s), not elsewhere classified, initial encounter; Y93.01 Activity, walking, marching and hiking; Y92.009 Unspecified place in unspecified non-institutional (private) residence as the place of occurrence of the external cause
CPT/HCPCS: 99282

== ENCOUNTER 2021-08-06 16:03 | Emergency (ER) | payer SELFPAY ==
--- NOTE | 2021-08-06 16:34 | EDPHYS ---
Physician Documentation [facility] Name: Isaac Hollins Age: 21 yrs Sex: Female : 2000 Arrival Date: 08/06/2021 Time: 16:12 Bed 30 Private MD: ED Physician Alejo Mahajan HPI: 08/06 16:32 This 21 yrs old Black Female presents to ER via Ambulatory with complaints of Vaginal kb Pain. 16:32 The patient presents with painful area to vagina. Onset: The symptoms/episode kb began/occurred 1 week(s) ago. Modifying factors: The symptoms are alleviated by nothing, the symptoms are aggravated by pressure, walking. Associated signs and symptoms: The patient has no apparent associated signs or symptoms. Severity of symptoms: At their worst the symptoms were moderate, in the emergency department the symptoms are unchanged. The patient has not experienced similar symptoms in the past. The patient has been recently seen by a physician: the patient's primary care provider. Pt reports she was seen by her dr for a sore on her vagina a week ago. Was started on doxycycline and was told to call if it got worse and they would change the rx. States she feels like it has gotten worse but was unable to get in touch with PEST CONTROL APPLICATOR. 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 - Social history:: Smoking status: Reported history of juuling and/or vaping. ROS: 16:31 Constitutional: Negative for fever, chills, and weight loss. kb 16:31 : Positive for of the vaginal opening, pain. 16:31 All other systems are negative. Exam: 16:31 Constitutional: This is a well developed, well nourished patient who is awake, alert, kb and in no acute distress. Head/Face: Normocephalic, atraumatic. Respiratory: Respirations even and unlabored. No increased work of breathing, no retractions or nasal flaring. Skin: Warm, dry with normal turgor. Normal color. MS/ Extremity: Pulses equal, no cyanosis. Neurovascular intact. Full, normal range of motion. Neuro: Awake and alert, GCS 15, oriented to person, place, time, and situation. Moves all extremities. Normal gait. Psych: Awake, alert, with orientation to person, place and time. Behavior, mood, and affect are within normal limits. 16:31 : Pelvic Exam: External exam: is normal, +tenderness. Vital Signs: 16:16 BP 98 / 72; Pulse 77; Resp 16 S; Temp 98.1(TE); Pulse Ox 100% on R/A; Weight 83.01 kg jd3 (R); Height 5 ft. 9 in. (175.26 cm) (R); Pain 7/10; 16:49 BP 120 / 76; Pulse 75; Resp 16; Pulse Ox 100% on R/A; oh 16:16 Body Mass Index 27.02 (83.01 kg, 175.26 cm) jd3 MDM: 16:23 Patient medically screened. kb 16:30 Data reviewed: vital signs, nurses notes. Data interpreted: Pulse oximetry: on room air kb is 100 %. Interpretation: normal. Counseling: I had a detailed discussion with the patient and/or guardian regarding: the historical points, exam findings, and any diagnostic results supporting the discharge/admit diagnosis, the need for outpatient follow up, an OB/Gyne specialist, to return to the emergency department if symptoms worsen or persist or if there are any questions or concerns that arise at home. ED course: No drainable abscess noted. right labia minora very tender upon palpation. Administered Medications: No medications were administered Disposition: 17:08 Co-signature as Attending Physician, Alejo Mahajan MD I agree with the assessment and kdr plan of care. Disposition Summary: 08/06/21 16:34 Discharge Ordered Location: Home kb Condition: Stable kb Diagnosis - Local infection of the skin and subcutaneous tissue, unspecified kb Followup: kb - With: Emergency Department - When: As needed - Reason: Worsening of condition Followup: kb - With: Private Physician - When: 2 - 3 days - Reason: Recheck today's complaints, Continuance of care, Re-evaluation by your physician Discharge Instructions: - Discharge Summary Sheet kb - Bartholin's Cyst, [id number] kb Forms: - Medication Reconciliation Form kb - Thank You Letter kb - Work release form kb - Antibiotic Education kb - Prescription Opioid Use kb Prescriptions: - Bactrim DS 800-160 mg Oral Tablet - take 1 tablet by ORAL route every 12 hours for 7 days; 14 tablet; Refills: 0, kb Product Selection Permitted Signatures: Dispatcher [employer] EDMS Yani Zhang, HEATING TECHNICIAN-C AKANKSHA-Alejo Bocanegra MD MD kdr Davies, Jonathon RN RN jd3 Corrections: (The following items were deleted from the chart) 16:31 16:30 ED course: No drainable abscess noted. right labia minor very tender upon kb palpation. kb 16:32 16:24 Urine Dipstick-Ancillary ordered. kb oh 16:32 16:24 Urine Test ordered. kb oh
--- NOTE | 2021-08-06 16:34 | ER ---
Nurse's Notes [facility] Name: Isaac Hollins Age: 21 yrs Sex: Female : 2000 Arrival Date: 08/06/2021 Time: 16:12 Bed 30 Private MD: Diagnosis: Local infection of the skin and subcutaneous tissue, unspecified Presentation: 08/06 16:15 Chief complaint: Patient states: "I went to my other doctor and was told i might have jd3 an infection. I feel like it got worse. and it feels really irritated.". Coronavirus screen: At this time, the client does not indicate any symptoms associated with coronavirus-19. Ebola Screen: Patient negative for fever greater than or equal to 101.5 degrees Fahrenheit, and additional compatible Ebola Virus Disease symptoms. Initial Sepsis Screen: Does the patient meet any 2 criteria? No. Patient's initial sepsis screen is negative. Does the patient have a suspected source of infection? No. Patient's initial sepsis screen is negative. Risk Assessment: Do you want to hurt yourself or someone else? Patient reports no desire to harm self or others. Onset of symptoms was August 01, 2021. 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 - Social history:: Smoking status: Reported history of juuling and/or vaping. Screenin:52 Abuse screen: Denies threats or abuse. Nutritional screening: No deficits noted. oh Tuberculosis screening: No symptoms or risk factors identified. Fall Risk None identified. Assessment: 16:50 General: Appears comfortable, Behavior is calm, appropriate for age, Reports cyst to oh vaginal area, continued pain and discomfort, no relief from previous med. Pain: Complains of pain in vaginal area. : Reports pain cyst to vaginal area, continued pain and discomfort, no relief from previous med. Vital Signs: 16:16 BP 98 / 72; Pulse 77; Resp 16 S; Temp 98.1(TE); Pulse Ox 100% on R/A; Weight 83.01 kg jd3 (R); Height 5 ft. 9 in. (175.26 cm) (R); Pain 7/10; 16:49 BP 120 / 76; Pulse 75; Resp 16; Pulse Ox 100% on R/A; oh 16:16 Body Mass Index 27.02 (83.01 kg, 175.26 cm) [facility] ED Course: 16:12 Patient arrived in ED. am2 16:16 Triage completed. jd3 16:17 Arm band placed on. jd3 16:21 Sydney Lua is Primary Nurse. kh1 16:23 [facility]C [facility]. kb 16:23 Alejo Mahajan MD is Attending Physician. kb 16:52 Placed in gown. Bed in low position. Call light in reach. oh 16:52 No provider procedures requiring assistance completed. oh 16:52 Patient did not have IV access during this emergency room visit. oh Administered Medications: No medications were administered Outcome: 16:34 Discharge ordered by MD. kb 16:52 Discharged to home ambulatory. oh 16:52 Condition: stable 16:52 Discharge instructions given to patient. 16:53 Patient left the ED. oh Signatures: Yani Zhang FNP-C FNP-Ckb Moreno, Amanda am2 Hugh Parada RN RN jSydney Milan kh1 Svetlana Prince RN RN oh
[2021-08-06 17:25] VITALS: TEMP 98.1; O2SAT 100
[2021-08-06 17:26] VITALS: BP 120/76
== END 2021-08-06 16:53 | disposition home or self-care (01) ==
LOC: ER 16:03
DX: L08.9 Local infection of the skin and subcutaneous tissue, unspecified (principal)
CPT/HCPCS: 99281

== ENCOUNTER 2022-06-22 13:59 | Emergency (ER) | payer SELFPAY ==
--- OUTSIDE RECORDS SUMMARY | 2022-06-22 14:04 | XMS REPORT | Continuity of Care Document ---
:2000 Author Organization [facility] t Address [address] [place] [address] Care Team Providers Name Role Phone PCP, PATIENT DOES NOT HAVE A Primary Care Physician Unavaila ble JOBY KRISHNAN Attending Clinician Unavailable Joby Krishnan MD Attending Clinician Payers Payer Name Policy Type Policy Number Effective Date Expiration Date S ource [place] [id number] 2019 00:00:00 Problems Condition Condition Condition Status Onset Resolution Last Treating Co mments Source Name Details Category Date Date Treatment Clinician Date Chlamydia Chlamydia Disease Active 2017-11 Uni vers trachomati trachomati 0-26 it y of s s 00:00: [place] infection infection 00 Medi jaylan of [place] Branch genitourin genitourin pedro sites pedro sites Screening Screening Disease Active 2016-11 Uni vers for STD for STD 0-24 ity of ([place] ([place] transmit[place] transmitte 00 Me dical d disease) d disease) Br anch Depo-Prove Depo-Prove Disease Active 2016-11 U nivers ra ra 0-24 [place] 00 [place] dical Branch Need for Need for Disease Active 2016-11 Unive rs HPV HPV 0-24 [place]y of vaccin[place] Allergies, Adverse Reactions, Alerts Allergy Allergy Status Severity Reaction(s) Onset Inactive Treating Comm ents Source Name Type Date Date Clinician NO KNOWN Drug Active Univers ALLERGIE Class ity of S [facility] Social History Social Habit Start Date Stop Date Quantity Comments Source Exposure to 2022-04-15 2022-04-25 Not sure [facility] SARS-CoV-2 00:00:00 19:08:00 [facility] (event) Branch Alcohol intake 2022-04-25 2022-04-25 Current University of 00:00:00 00:00:00 non-drinker of [facility] alcohol Branch (finding) Tobacco use and 2017-09-06 2017-09-06 Never used Universit y of exposure 00:00:00 00:00:00 [facility] Sex Assigned At [birth year] Universit y of 00:00:00 00:00:00 [facility] Smoking Status Start Date Stop Date Source Never smoker [facility] Medications Ordered Filled Start Stop Current Ordering Indication Dosage Frequency Signature Comments Components Source Medication Medication Date Date Medication? Clinician (SIG) Name Name No known No Univers medications -12 ity of 19:17: [address] Immunizations Ordered Immunization Filled Immunization Date Status Commen ts Source Name Name Meningococcal B, OMV 2018-03-17 Completed Univ ersity of 00:00:00 [facility] Meningococcal B, OMV 2018-02-16 Completed Univ ersity of 00:00:00 [facility] HPV9 2017-11-22 Completed University of 00:00:00 [facility] HPV9 2017-09-06 Completed University of 00:00:00 [facility] Meningococcal 2016-07-23 Completed University of Vaccine 00:00:00 [facility] HPV 2016-06-14 Completed University of 00:00:00 [facility] HPV 2014-10-21 Completed University of 00:00:00 [facility] HPV 2013-07-19 Completed University of 00:00:00 [facility] HEPATITIS A 2012-09-12 Completed University of 00:00:00 [facility] HPV 2012-07-07 Completed University of 00:00:00 [facility] Meningococcal 2012-07-07 Completed University of Vaccine 00:00:00 [facility] Varicella 2012-07-07 Completed University of (varivax)(chicken 00:00:00 [place] [facility] [place] pox) Branch HPV 2012-01-07 Completed University of 00:00:00 [facility] DTAP 2005-06-07 Completed University of 00:00:00 [facility] HEPATITIS A 2005-06-07 Completed University of 00:00:00 [facility] MMR 2005-06-07 Completed University of 00:00:00 [facility] Polio (IPV/OPV) 2005-06-07 Completed Universit y of 00:00:00 [facility] DTAP 2001-12-11 Completed University of 00:00:00 [facility] HIB 4 Dose Schedule 2001-12-11 Completed Unive rsity of 00:00:00 [facility] Polio (IPV/OPV) 2001-12-11 Completed Universit y of 00:00:00 [facility] MMR 2001-08-02 Completed University of 00:00:00 [facility] Varicella 2001-08-02 Completed University of (varivax)(chicken 00:00:00 [facility] edical pox) Branch Pneumococcal 7 2001-08-02 Completed University of Conjugate, PCV7 00:00:00 [place] [facility] ical (Prevnar7) Branch DTAP 2001-02-27 Completed University of 00:00:00 [facility] HIB 4 Dose Schedule 2001-02-27 Completed Unive rsity of 00:00:00 [facility] Hep B, Adol or Pedi 2001-02-27 Completed Unive rsity of Dosage 00:00:00 [facility] Pneumococcal 7 2001-02-27 Completed University of Conjugate, PCV7 00:00:00 [place] [facility] ical (Prevnar7) Branch DTAP 2000 Completed University of 00:00:00 [facility] HIB 4 Dose Schedule 2000 Completed Unive rsity of 00:00:00 [facility] Hep B, Adol or Pedi 2000 Completed Unive rsity of Dosage 00:00:00 [facility] Polio (IPV/OPV) 2000 Completed Universit y of 00:00:00 [facility] Pneumococcal 7 2000 Completed University of Conjugate, PCV7 00:00:00 [place] [facility] ical (Prevnar7) Branch DTAP 2000 Completed University of 00:00:00 [facility] HIB 4 Dose Schedule 2000 Completed Unive rsity of 00:00:00 [facility] Hep B, Adol or Pedi 2000 Completed Unive rsity of Dosage 00:00:00 [facility] Polio (IPV/OPV) 2000 Completed Universit y of 00:00:00 [facility] Hep B, Adol or Pedi 2000 Completed Unive rsity of Dosage 00:00:00 [facility] Vital Signs Vital Name Observation Time Observation Value Comments Source Systolic blood 2022-04-26 00:10:00 133 mm[Hg] Univer sity of pressure [facility] Diastolic blood 2022-04-26 00:10:00 70 mm[Hg] Unive rsity of pressure [facility] Heart rate 2022-04-26 00:10:00 69 /min [facility] Body temperature 2022-04-26 00:10:[address] [facility] Respiratory rate 2022-04-26 00:10:00 18 /min [facility] Body height 2022-04-26 00:10:00 175.3 cm [facility] Body weight 2022-04-26 00:10:00 98.431 kg [facility] BMI 2022-04-26 00:10:00 32.05 kg/m2 [facility] Oxygen saturation in 2022-04-26 00:10:00 99 /min [facility] Arterial blood by [facility] Pulse oximetry Branch Procedures Procedure Date / Time Performed Performing Clinician Sour e RAPID STREP SCREEN 2022-04-26 00:13:00 Joby Krishnan [facility] FOR GROUP A Medical Branch NOTICE OF PRIVACY 2022-04-26 00:06:04 Doctor Unassigned, [facility] Medical Branch CONSENT/REFUSAL FOR 2022-04-26 00:03:41 Doctor Unassigned, [facility] AND Name Medical Branch TREATMENT Encounters Start End Encounter Admission Attending Care Care Encounter Source Date/Time Date/Time Type Type Clinicians Facility Department ID 2022-04-25 2022-04-25 Emergency X LASHAY KRISHNAN ERT [id number] Univers 19:14:00 20:52:00 JOBY garcia [facility] 2022-04-25 2022-04-25 Emergency Apryl, [facility] [id number] Univers 19:14:00 20:52:00 Joby VELAZQUEZ [id number] radha [facility] [id number] [facility] [id number] [facility] 084 Branch Results This patient has no known results.
[2022-06-22 15:20] LABS: Absolute Lymphocytes (CBC) 1.6 K/uL (0.7-4.9); Hematocrit 36.9 % (36.0-45.0); Lymphocytes % 24.9 % (15.3-44.8); MCV 78.9 fL (80-100); MPV 8.4 fL (7.6-11.3); RBC Red Blood Cell Count 4.68 M/uL (3.86-4.86)
[2022-06-22 15:22] LABS: Urine Blood 1+ (Negative); Urine Glucose Negative (Negative); Urine Protein Negative (Negative); Urine Specific Gravity 1.025 (1.005-1.030); Urine pH 6.5 (5.0-7.0)
[2022-06-22 15:29] LABS: Potassium 3.8 mmol/L (3.5-5.1)
[2022-06-22 15:42] LABS: Urine Specific Gravity/Preg 1.025 (1.005-1.030)
--- NOTE | 2022-06-22 17:07 | RAD REPORT ---
EXAM DESCRIPTION: US - Transvaginal OB - 06/22/2022 4:53 pm CLINICAL HISTORY: Vaginal bleeding COMPARISON: No comparisons FINDINGS: No IUP is identified. Endometrium is thin measuring 3 mm. The maternal adnexa and ovaries are within normal limits. Normal Doppler blood flow was demonstrated to both ovaries. IMPRESSION: No IUP is identified. In the setting of a positive HCG level, this would be considered p regnancy of unknown location. Recommend serial HCG levels and follow-up pelvic sonography in 7 days.
--- NOTE | 2022-06-22 17:42 | EDPHYS ---
Physician Documentation [facility] Name: Isaac Hollins Age: 21 yrs Sex: Female : 2000 Arrival Date: 06/22/2022 Time: 14:01 Bed 19 Private MD: ED Physician Herman Burnett HPI: 06/22 18:28 This 21 yrs old Black Female presents to ER via Ambulatory with complaints of Pelvic kb Pain, Vaginal Bleeding. 18:28 The patient presents with pelvic pain, that is located in/on the left lower quadrant kb and right lower quadrant, vaginal bleeding that is. Onset: The symptoms/episode began/occurred 2 week(s) ago. Modifying factors: The symptoms are alleviated by nothing, the symptoms are aggravated by nothing. Associated signs and symptoms: Pertinent positives: cramping, vaginal bleeding, Pertinent negatives: constipation, urinary frequency, vaginal discharge, vomiting. Severity of symptoms: At their worst the symptoms were mild, in the emergency department the symptoms are unchanged. The patient has not experienced similar symptoms in the past. The patient has not recently seen a physician. Pt reports vaginal bleeding for 2 weeks and lower abd pain for 4 days. Historical: - Allergies: 14:27 No Known Allergies; iw - Home Meds: 14:27 None [Active]; iw - PMHx: 14:27 Anxiety; iw - PSHx: 14:27 None; iw - Immunization history:: Client reports receiving the 2nd dose of the Covid vaccine. - Social history:: Smoking status: Reported history of juuling and/or vaping. ROS: 18:27 Constitutional: Negative for fever, chills, and weight loss. kb 18:27 Abdomen/GI: Positive for abdominal pain, Negative for nausea, vomiting, and diarrhea. 18:27 : Positive for vaginal bleeding. 18:27 All other systems are negative. Exam: 18:27 Constitutional: This is a well developed, well nourished patient who is awake, alert, kb and in no acute distress. Head/Face: Normocephalic, atraumatic. ENT: Moist Mucous membranes Cardiovascular: Regular rate and rhythm with a normal S1 and S2. No gallops, murmurs, or rubs. No pulse deficits. Respiratory: Respirations even and unlabored. No increased work of breathing. Talking in full sentences Skin: Warm, dry with normal turgor. Normal color. MS/ Extremity: Pulses equal, no cyanosis. Neurovascular intact. Full, normal range of motion. Neuro: Awake and alert, GCS 15, oriented to person, place, time, and situation. Moves all extremities. Normal gait. Psych: Awake, alert, with orientation to person, place and time. Behavior, mood, and affect are within normal limits. 18:27 Abdomen/GI: Inspection: abdomen appears normal, Bowel sounds: normal, Palpation: soft, in all quadrants, mild abdominal tenderness, in the right lower quadrant and left lower quadrant. Vital Signs: 14:25 BP 134 / 91; Pulse 74; Resp 16; Temp 97.9; Pulse Ox 100% on R/A; Weight 97.52 kg; iw Height 5 ft. 9 in. (175.26 cm); Pain 5/10; 14:25 Body Mass Index 31.75 (97.52 kg, 175.26 cm) iw MDM: 14:29 Patient medically screened. kb 18:27 Data reviewed: vital signs, nurses notes. Data interpreted: Pulse oximetry: on room air kb is 100 %. Interpretation: normal. Counseling: I had a detailed discussion with the patient and/or guardian regarding: the historical points, exam findings, and any diagnostic results supporting the discharge/admit diagnosis, lab results, radiology results, the need for outpatient follow up, an OB/Gyne specialist, to return to the emergency department if symptoms worsen or persist or if there are any questions or concerns that arise at home. ED course: Pt educated to follow up with OB. Pt informed of need for repeat HCG in 2 days and repeat US in 1 week. 06/22 14:30 Order name: Abo/rh Typing; Complete Time: 15:47 kb 06/22 14:30 Order name: Basic Metabolic Panel; Complete Time: 15:33 kb 06/22 14:30 Order name: CBC with Diff; Complete Time: 15:33 kb 06/22 15:22 Order name: Urine Dipstick-Ancillary; Complete Time: 15:33 EDMS 06/22 15:23 Order name: Urine --Ancillary (enter results); Complete Time: 15:42 bd 06/22 15:43 Order name: Quantitative Hcg; Complete Time: 16:05 kb 06/22 14:30 Order name: IV Saline Lock; Complete Time: 15:08 kb 06/22 14:30 Order name: Labs collected and sent; Complete Time: 15:08 kb 06/22 14:30 Order name: NPO; Complete Time: 15:16 kb 06/22 14:30 Order name: Urine Dipstick-Ancillary (obtain specimen); Complete Time: 15:26 kb 06/22 14:30 Order name: Urine Test (obtain specimen); Complete Time: 15:26 kb 06/22 15:45 Order name: US Transvaginal Ob; Complete Time: 17:20 kb Administered Medications: No medications were administered Disposition Summary: 06/22/22 17:41 Discharge Ordered Location: Home kb Condition: Stable kb Diagnosis - Threatened kb Followup: kb - With: Emergency Department - When: As needed - Reason: Worsening of condition Followup: kb - With: Private Physician - When: 2 - 3 days - Reason: Recheck today's complaints, Continuance of care, Re-evaluation by your physician Discharge Instructions: - Discharge Summary Sheet kb - Threatened Miscarriage, [id number] kb - Vaginal Bleeding During , First Trimester, [id number] kb Forms: - Medication Reconciliation Form kb - Thank You Letter kb - Antibiotic Education kb - Prescription Opioid Use kb Signatures: Dispatcher [employer] Yani Morales FNP-C AKANKSHA-Brooklynn Chaves, RN RN iw
--- NOTE | 2022-06-22 17:42 | ER ---
Nurse's Notes [facility] Name: Isaac Hollins Age: 21 yrs Sex: Female : 2000 Arrival Date: 06/22/2022 Time: 14:01 Bed 19 Private MD: Diagnosis: Threatened Presentation: 06/22 14:25 Chief complaint: Patient states: having really bad low stomach pains, i had my cycle iw last month and I've been bleeding since then, it stopped for a week and it's back , no hx of irregular periods. Coronavirus screen: At this time, the client does not indicate any symptoms associated with coronavirus-19. Ebola Screen: Patient negative for fever greater than or equal to 101.5 degrees Fahrenheit, and additional compatible Ebola Virus Disease symptoms Patient denies exposure to infectious person. Patient denies travel to an Ebola-affected area in the 21 days before illness onset. No symptoms or risks identified at this time. Initial Sepsis Screen: Does the patient meet any 2 criteria? No. Patient's initial sepsis screen is negative. Does the patient have a suspected source of infection? No. Patient's initial sepsis screen is negative. Risk Assessment: Do you want to hurt yourself or someone else? Patient reports no desire to harm self or others. Onset of symptoms was June 19, 2022. 14:25 Method Of Arrival: Ambulatory iw 14:25 Acuity: JANIE 3 iw Triage Assessment: 14:50 General: Appears in no apparent distress. Behavior is calm, cooperative. dash Historical: - Allergies: 14:27 No Known Allergies; iw - Home Meds: 14:27 None [Active]; iw - PMHx: 14:27 Anxiety; iw - PSHx: 14:27 None; iw - Immunization history:: Client reports receiving the 2nd dose of the Covid vaccine. - Social history:: Smoking status: Reported history of juuling and/or vaping. Screenin:50 Abuse screen: Denies threats or abuse. Denies injuries from another. Nutritional dash screening: No deficits noted. Tuberculosis screening: No symptoms or risk factors identified. Fall Risk None identified. Assessment: 14:49 Pain: Complains of pain in abdomen. : bloody, Reports vaginal bleeding that is bright dash red, moderate flow. Vital Signs: 14:25 BP 134 / 91; Pulse 74; Resp 16; Temp 97.9; Pulse Ox 100% on R/A; Weight 97.52 kg; iw Height 5 ft. 9 in. (175.26 cm); Pain 5/10; 14:25 Body Mass Index 31.75 (97.52 kg, 175.26 cm) ED Course: 14:01 Patient arrived in ED. am2 14:04 [facility]C [facility]. kb 14:04 Herman Burnett MD is Attending Physician. kb 14:27 Triage completed. iw 14:27 Arm band placed on. iw 14:49 Octavia High, RN is Primary Nurse. dash 14:50 Patient has correct armband on for positive identification. Bed in low position. dash 14:50 No provider procedures requiring assistance completed. dash 15:08 Initial lab(s) drawn, by nd, sent to lab. Inserted saline lock: 20 gauge in left jw7 antecubital area, using aseptic technique. Blood collected. 15:54 [facility] top HCG collected and sent. jw 15:55 Quantitative Hcg Sent. jw7 16:55 Transvaginal Ob In Process Unspecified. EDMS 17:55 IV discontinued, intact, Pressure dressing applied. dash Administered Medications: No medications were administered Medication: 14:50 VIS not applicable for this client. dash Outcome: 17:41 Discharge ordered by . kb 17:54 Discharged to home ambulatory. dash 17:54 Condition: good 17:54 Discharge instructions given to patient. 17:55 Patient left the ED. dash Signatures: Dispatcher [employer] EDMS Yani Zhang FNP-C FNP-Brooklynn Chaves, RN Naye Alexander 2 Octavia High, RU RN Luanne Lee jw7
[2022-06-22 19:00] VITALS: BP 134/91; TEMP 97.9; O2SAT 100
== END 2022-06-22 17:55 | disposition home or self-care (01) ==
LOC: ER 13:59
DX: O20.0 Threatened abortion (principal)
CPT/HCPCS: 36415; 76817; 80048; 81003; 81025; 84702; 85025; 86900; 86901; 99283

== ENCOUNTER 2022-11-15 01:18 | Emergency (ER) | payer SELFPAY ==
--- OUTSIDE RECORDS SUMMARY | 2022-11-15 01:21 | XMS REPORT | Continuity of Care Document ---
:2000 Author Organization [facility] t Address [address] [place] [address] Care Team Providers Name Role Phone PCP, PATIENT DOES NOT HAVE A Primary Care Physician Unavaila JOBY Marinelli S Attending Clinician Unavailable Joby Krishnan MD Attending Clinician Payers Payer Name Policy Type Policy Number Effective Date Expiration Date S ource [place] [id number] 2019 00:00:00 Problems Condition Condition Condition Status [place] [facility] Allergies, Adverse Reactions, Alerts Allergy Allergy Status Severity Reaction(s) Onset Inactive Treating Comm ents Source Name Type Date Date Clinician NO KNOWN Drug Active Univers ALLERGIE Class ity of S [facility] Social History Social Habit Start Date Stop Date Quantity Comments Source Exposure to 2022-04-15 2022-04-25 Not sure [facility] SARS-CoV-2 00:00:00 19:08:00 [facility] (event) Branch Alcohol intake 2022-04-25 2022-04-25 Current University of 00:00:00 00:00:00 non-drinker of [facility] alcohol Branch (finding) Tobacco use and 2017-09-06 2017-09-06 Never used Universit y of exposure 00:00:00 00:00:00 [facility] Sex Assigned At [birth year] Universit y of 00:00:00 00:00:00 [facility] Smoking Status Start Date Stop Date Source Never smoker [facility] Medications Ordered Filled Start Stop Current Ordering Indication Dosage Frequency Signature Comments Components Source Medication Medication Date Date Medication? Clinician (SIG) Name Name No known No Univers medications -12 ity of 19:17: [address] Immunizations Ordered Immunization Filled Immunization Date Status Commen ts Source Name Name Meningococcal B, OMV 2018-03-17 Completed Univ ersity of 00:00:00 [facility] Meningococcal B, OMV 2018-02-16 Completed Univ ersity of 00:00:00 [facility] HPV9 2017-11-22 Completed University of 00:00:00 [facility] HPV9 2017-09-06 Completed University of 00:00:00 [facility] Meningococcal 2016-07-23 Completed University of Vaccine 00:00:00 [facility] HPV 2016-06-14 Completed University of 00:00:00 [facility] HPV 2014-10-21 Completed University of 00:00:00 [facility] HPV 2013-07-19 Completed University of 00:00:00 [facility] HEPATITIS A 2012-09-12 Completed University of 00:00:00 [facility] HPV 2012-07-07 Completed University of 00:00:00 [facility] Meningococcal 2012-07-07 Completed University of Vaccine 00:00:00 [facility] Varicella 2012-07-07 Completed University of (varivax)(chicken 00:00:00 [facility] edical pox) Branch HPV 2012-01-07 Completed University of 00:00:00 [facility] DTAP 2005-06-07 Completed University of 00:00:00 [facility] HEPATITIS A 2005-06-07 Completed University of 00:00:00 [facility] MMR 2005-06-07 Completed University of 00:00:00 [facility] Polio (IPV/OPV) 2005-06-07 Completed Universit y of 00:00:00 [facility] DTAP 2001-12-11 Completed University of 00:00:00 [facility] HIB 4 Dose Schedule 2001-12-11 Completed Unive rsity of 00:00:00 [facility] Polio (IPV/OPV) 2001-12-11 Completed Universit y of 00:00:00 [facility] MMR 2001-08-02 Completed University of 00:00:00 [facility] Varicella 2001-08-02 Completed University of (varivax)(chicken 00:00:00 [facility] edical pox) Branch Pneumococcal 7 2001-08-02 Completed University of Conjugate, PCV7 00:00:00 [place] [facility] (Prevnar7) Branch DTAP 2001-02-27 Completed University of 00:00:00 [facility] HIB 4 Dose Schedule 2001-02-27 Completed Unive rsity of 00:00:00 [facility] Hep B, Adol or Pedi 2001-02-27 Completed Unive rsity of Dosage 00:00:00 [facility] Pneumococcal 7 2001-02-27 Completed University of Conjugate, PCV7 00:00:00 [place] [facility] (Prevnar7) Branch DTAP 2000 Completed University of 00:00:00 [facility] HIB 4 Dose Schedule 2000 Completed Unive rsity of 00:00:00 [facility] Hep B, Adol or Pedi 2000 Completed Unive rsity of Dosage 00:00:00 [facility] Polio (IPV/OPV) 2000 Completed Universit y of 00:00:00 [facility] Pneumococcal 7 2000 Completed University of Conjugate, PCV7 00:00:00 [place] [facility] (Prevnar7) Branch DTAP 2000 Completed University of 00:00:00 [facility] HIB 4 Dose Schedule 2000 Completed Unive rsity of 00:00:00 [facility] Hep B, Adol or Pedi 2000 Completed Unive rsity of Dosage 00:00:00 [facility] Polio (IPV/OPV) 2000 Completed Universit y of 00:00:00 [facility] Hep B, Adol or Pedi 2000 Completed Unive rsity of Dosage 00:00:00 [facility] Vital Signs Vital Name Observation Time Observation Value Comments Source Systolic blood 2022-04-26 00:10:00 133 mm[Hg] Univer sity of pressure [facility] Diastolic blood 2022-04-26 00:10:00 70 mm[Hg] Unive rsity of pressure [facility] Heart rate 2022-04-26 00:10:00 69 /min [facility] Body temperature 2022-04-26 00:10:00 37.17 Elena [facility] Respiratory rate 2022-04-26 00:10:00 18 /min [facility] Body height 2022-04-26 00:10:00 175.3 cm [facility] Body weight 2022-04-26 00:10:00 98.431 kg [facility] BMI 2022-04-26 00:10:00 32.05 kg/m2 [facility] Oxygen saturation in 2022-04-26 00:10:00 99 /min [facility] Arterial blood by [facility] Pulse oximetry Branch Procedures Procedure Date / Time Performed Performing Clinician Sourclarke e RAPID STREP SCREEN 2022-04-26 00:13:00 Joby Krishnan [facility] FOR GROUP A Medical Branch NOTICE OF PRIVACY 2022-04-26 00:06:04 Doctor Unassigned, No Univ [facility] PRACTICES Name Medical Branch CONSENT/REFUSAL FOR 2022-04-26 00:03:41 [facility]igned, [facility] AND Name Medical Branch TREATMENT Encounters Start End Encounter Admission Attending Care Care Encounter Source Date/Time Date/Time Type Type Clinicians Facility Department ID 2022-04-25 2022-04-25 Emergency X LASHAY KRISHNAN ERT [id number] Univers 19:14:00 20:52:00 JOBY garcia [facility] 2022-04-25 2022-04-25 Emergency Apryl [facility] [id number] Univers 19:14:00 20:52:00 Joby Watson MOLINA [id number] radha [facility] [id number] [facility] [id number] [facility] 084 Branch Results This patient has no known results.
[2022-11-15 02:00] LABS: Urine Blood Trace-intact (Negative); Urine Glucose Negative (Negative); Urine Protein Negative (Negative); Urine Specific Gravity >=1.030 (1.005-1.030); Urine pH 5.5 (5.0-7.0)
[2022-11-15 02:09] LABS: Absolute Lymphocytes (CBC) 2.4 K/uL (0.7-4.9); Hematocrit 36.8 % (36.0-45.0); Lymphocytes % 21.6 % (15.3-44.8); MCV 79.1 fL (80-100); RBC Red Blood Cell Count 4.65 M/uL (3.86-4.86)
[2022-11-15 02:12] LABS: Urine Specific Gravity/Preg >1.030 (1.005-1.030)
[2022-11-15 02:12] LABS: Protime INR 0.95
[2022-11-15 02:32] LABS: Albumin 3.6 g/dL (3.4-5.0); Bilirubin Direct 0.2 mg/dL (0-0.2); Bilirubin Total 0.5 mg/dL (0.2-1.0); Magnesium 2.2 mg/dL (1.6-2.4); Potassium 3.8 mmol/L (3.5-5.1); Protein, Total 7.7 g/dL (6.4-8.2); Troponin High Sensitivity 4.4 pg/mL (<58.9)
[2022-11-15 02:40] LABS: Thyroid Stimulating Hormone 4.49 uIU/mL (0.358-3.740)
[2022-11-15] MEDS ORDERED: NA CHLORIDE 0.9% 500 ML ONE (02:58)
--- NOTE | 2022-11-15 03:31 | EDPHYS ---
Physician Documentation [facility] Name: Isaac Hollins Age: 22 yrs Sex: Female : 2000 Arrival Date: 11/15/2022 Time: 01:19 Bed 12 Private MD: KASSI Physician Herman Burnett HPI: 11/15 03:25 This 22 yrs old Black Female presents to ER via Ambulatory with complaints of Chest franco Pain, Irregular Pulse. 03:25 The patient or guardian reports chest pain that is located primarily in the substernal franco area. The pain does not radiate. Associated signs and symptoms: The patient has no apparent associated signs or symptoms. The chest pain is described as PALPITATIONS. Duration: The patient or guardian reports multiple episodes, with no pattern. Modifying factors: The symptoms are alleviated by nothing. the symptoms are aggravated by activity. Severity of pain: At its worst the pain was mild in the emergency department the pain has improved mildly. The patient has not experienced similar symptoms in the past. 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 - Social history:: Smoking status: Reported history of juuling and/or vaping. - Family history:: not pertinent. ROS: 03:25 Constitutional: Negative for fever, chills, and weight loss, Eyes: Negative for injury, franco pain, redness, and discharge, ENT: Negative for injury, pain, and discharge, Neck: Negative for injury, pain, and swelling, Respiratory: Negative for shortness of breath, cough, wheezing, and pleuritic chest pain, Abdomen/GI: Negative for abdominal pain, nausea, vomiting, diarrhea, and constipation, Back: Negative for injury and pain, : Negative for injury, bleeding, discharge, and swelling, MS/Extremity: Negative for injury and deformity, Skin: Negative for injury, rash, and discoloration, Neuro: Negative for headache, weakness, numbness, tingling, and seizure, Psych: Negative for depression, anxiety, suicide ideation, homicidal ideation, and hallucinations, Allergy/Immunology: Negative for hives, rash, and allergies, Endocrine: Negative for neck swelling, polydipsia, polyuria, polyphagia, and marked weight changes, Hematologic/Lymphatic: Negative for swollen nodes, abnormal bleeding, and unusual bruising. 03:25 Cardiovascular: Positive for palpitations. Exam: 03:25 Constitutional: This is a well developed, well nourished patient who is awake, alert, franco and in no acute distress. Head/Face: Normocephalic, atraumatic. Eyes: Pupils equal round and reactive to light, extra-ocular motions intact. Lids and lashes normal. Conjunctiva and sclera are non-icteric and not injected. Cornea within normal limits. Periorbital areas with no swelling, redness, or edema. ENT: Nares patent. No nasal discharge, no septal abnormalities noted. Tympanic membranes are normal and external auditory canals are clear. Oropharynx with no redness, swelling, or masses, exudates, or evidence of obstruction, uvula midline. Mucous membranes moist. Neck: Trachea midline, no thyromegaly or masses palpated, and no cervical lymphadenopathy. Supple, full range of motion without nuchal rigidity, or vertebral point tenderness. No Meningismus. Chest/axilla: Normal chest wall appearance and motion. Nontender with no deformity. No lesions are appreciated. Cardiovascular: Regular rate and rhythm with a normal S1 and S2. No gallops, murmurs, or rubs. Normal PMI, no JVD. No pulse deficits. Respiratory: Lungs have equal breath sounds bilaterally, clear to auscultation and percussion. No rales, rhonchi or wheezes noted. No increased work of breathing, no retractions or nasal flaring. Abdomen/GI: Soft, non-tender, with normal bowel sounds. No distension or tympany. No guarding or rebound. No evidence of tenderness throughout. Female : Normal external genitalia. Skin: Warm, dry with normal turgor. Normal color with no rashes, no lesions, and no evidence of cellulitis. MS/ Extremity: Pulses equal, no cyanosis. Neurovascular intact. Full, normal range of motion. Neuro: Awake and alert, GCS 15, oriented to person, place, time, and situation. Cranial nerves II-XII grossly intact. Motor strength 5/5 in all extremities. Sensory grossly intact. Cerebellar exam normal. Normal gait. Psych: Awake, alert, with orientation to person, place and time. Behavior, mood, and affect are within normal limits. 03:25 ECG was reviewed by the Attending Physician. 03:29 Musculoskeletal/extremity: ROM: full active range of motion, full passive range of franco motion, Circulation is intact in all extremities. Sensation intact. Compartment Syndrome exam of affected extremity: is normal. Weight bearing: able to fully bear weight, DVT Exam: No signs of deep vein thrombosis. no pain, no swelling, no tenderness, negative Homans' sign noted on exam, no appreciated bluish discoloration, no erythema, no increased warmth. Vital Signs: 02:02 BP 124 / 69 RA Sitting (auto/lg); Pulse 76; Resp 16 S; Pulse Ox 100% on R/A; Weight mb4 101.15 kg (R); Height 5 ft. 10 in. (177.80 cm) (R); 03:52 BP 120 / 64; Pulse 92; Resp 16 S; Temp 98.6(O); Pulse Ox 100% on R/A; bb 02:02 Body Mass Index 32.00 (101.15 kg, 177.80 cm) mb4 MDM: 01:37 Patient medically screened. franco 03:27 Differential diagnosis: abnormal EKG, acute myocardial infarction, acute pericarditis, franco anxiety, chest wall pain, cholecystitis, Cholelithiasis esophagitis, gastroesophageal reflux disease (GERD), herpes zoster, peptic ulcer disease, pericarditis, pneumothorax, pulmonary embolus, stable angina, thoracic aortic disection, unstable angina. HEART Score: History: Slightly Suspicious (0), ECG: Normal (0), Age: < or = 45 years (0), Risk Factors: No Risk Factors Known (0), Troponin: < or = 1 x Normal Limit (0). The patient's deep vein thrombosis risk score was calculated as follows: Total Score: 0. This patient was found to be at low risk for a deep vein thrombosis by using the Well's assessment criteria. The patient's pulmonary embolism risk score was calculated as follows: Total Score: 3-6 points. This patient was found to be at moderate risk for a pulmonary embolism by using the Well's assessment criteria. JOSE Risk Score: TOTAL SCORE = 0. Data reviewed: vital signs, nurses notes, lab test result(s), EKG, radiologic studies, plain films. Data interpreted: awake overnight monitor: not applicable for this patient encounter. rate is 76 beats/min, rhythm is regular, Pulse oximetry: on room air is 100 %. Test interpretation: by ED physician or midlevel provider: ECG, plain radiologic studies. Counseling: I had a detailed discussion with the patient and/or guardian regarding: the historical points, exam findings, and any diagnostic results supporting the discharge/admit diagnosis, lab results, radiology results, the need for outpatient follow up, for definitive care, 11/15 01:39 Order name: Basic Metabolic Panel; Complete Time: 03:25 franco 11/15 01:39 Order name: CBC with Diff; Complete Time: 02:21 franco 11/15 01:39 Order name: LFT's; Complete Time: 03:25 franco 11/15 01:39 Order name: Magnesium; Complete Time: 03:25 franco 11/15 01:39 Order name: NT PRO-BNP; Complete Time: 03:25 franco 11/15 01:39 Order name: PT-INR; Complete Time: 02:21 franco 11/15 01:39 Order name: Troponin HS; Complete Time: 03:25 franco 11/15 01:39 Order name: XRAY Chest (1 view) franco 11/15 01:39 Order name: TSH; Complete Time: 03:25 franco 11/15 01:39 Order name: Lipase; Complete Time: 03:25 franco 11/15 02:00 Order name: Urine Dipstick-Ancillary; Complete Time: 02:21 EDMS 11/15 02:04 Order name: Urine --Ancillary (enter results); Complete Time: 02:21 mw2 11/15 02:43 Order name: T4 Free; Complete Time: 03:25 EDMS 11/15 01:39 Order name: EKG; Complete Time: 01:40 franco 11/15 01:39 Order name: Cardiac monitoring; Complete Time: 03:51 franco 11/15 01:39 Order name: EKG - Nurse/Tech; Complete Time: 01:55 franco 11/15 01:39 Order name: IV Saline Lock; Complete Time: 01:55 franco 11/15 01:39 Order name: Labs collected and sent; Complete Time: :55 franco 11/15 01:39 Order name: O2 Per Protocol; Complete Time: 02:06 [facility] 11/15 01:39 Order name: O2 Sat Monitoring; Complete Time: 01:55 [facility] 11/15 01:39 Order name: Urine Dipstick-Ancillary (obtain specimen); Complete Time: 02:04 [facility] 11/15 01:39 Order name: Urine Test (obtain specimen); Complete Time: 02:04 [facility] EC:25 Rate is 41 beats/min. Rhythm is regular. QRS [place] is Normal. [place] interval is normal. QRS franco interval is normal. QT interval is normal. No Q waves. T waves are Normal. No ST changes noted. Clinical impression: Normal ECG and No evidence of ischemia. Interpreted by me. Reviewed by me. Administered Medications: 03:02 Drug: NS 0.9% 500 ml Route: IV; Rate: bolus; Site: left antecubital; bb 03:51 Follow up: IV Status: Completed infusion; IV Intake: 500ml bb Disposition Summary: 11/15/22 03:31 Discharge Ordered Location: Home franco Problem: new franco Symptoms: have improved franco Condition: Stable franco Diagnosis - Palpitations franco - Anxiety disorder, unspecified franco Followup: franco - With: Private Physician - When: 2 - 3 days - Reason: Recheck today's complaints, Continuance of care, Re-evaluation by your physician Followup: franco - With: Shahid Luna MD - When: 2 - 3 days - Reason: Recheck today's complaints, Continuance of care, Re-evaluation by your physician Discharge Instructions: - Discharge Summary Sheet franco - Palpitations franco - Panic Attack, [id number] franco - Aspirin and Your Heart franco - Palpitations, Thon-jn-Amsw franco - Generalized Anxiety Disorder, Adult franco - Managing Anxiety, Adult franco Forms: - Medication Reconciliation Form franco - Thank You Letter franco - Antibiotic Education franco - Prescription Opioid Use franco Prescriptions: - Toprol XL 25 mg Oral Tablet - take 1 tablet by ORAL route once daily; 20 tablet; Refills: 0, Product franco Selection Permitted - Pepcid 20 mg Oral Tablet - take 1 tablet by ORAL route every 12 hours for 21 days; 42 tablet; Refills: 0, franco Product Selection Permitted Signatures: Dispatcher [employer] Herman Tom MD MD cha Ballard, Brenda, RN RN bb
--- NOTE | 2022-11-15 03:31 | ER ---
Nurse's Notes [facility] Name: Isaac Hollins Age: 22 yrs Sex: Female : 2000 Arrival Date: 11/15/2022 Time: :19 Bed 12 Private MD: Diagnosis: Palpitations;Anxiety disorder, unspecified Presentation: 11/15 02:06 Chief complaint: Patient states: she was dozing off tonight and felt a sharp chest pain bb then her heart seemed to beat irregularly she got worried because she has had several of these episodes over the last 6 months but this one was worse. Coronavirus screen: At this time, the client does not indicate any symptoms associated with coronavirus-19. Ebola Screen: No symptoms or risks identified at this time. Initial Sepsis Screen: Does the patient meet any 2 criteria? No. Patient's initial sepsis screen is negative. Does the patient have a suspected source of infection? No. Patient's initial sepsis screen is negative. Risk Assessment: Do you want to hurt yourself or someone else? Patient reports no desire to harm self or others. Onset of symptoms was November 14, 2022. 02:06 Method Of Arrival: Ambulatory bb 02:06 Acuity: JANIE 3 bb Triage Assessment: 02:08 General: Appears in no apparent distress. Behavior is calm, cooperative. Pain: bb Complains of pain in chest. Neuro: Level of Consciousness is awake, alert, obeys commands, Oriented to person, place, time, situation. Cardiovascular: Capillary refill < 3 seconds Patient's skin is warm and dry. Rhythm is sinus rhythm. Respiratory: Respiratory effort is even, unlabored, Respiratory pattern is regular. GI: No signs and/or symptoms were reported involving the gastrointestinal system. Derm: Skin is dry, Skin is normal, Skin temperature is warm. Musculoskeletal: Circulation, motion, and sensation intact. 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 - Social history:: Smoking status: Reported history of juuling and/or vaping. - Family history:: not pertinent. Screenin:10 [facility] ED Fall Risk Assessment (Adult) History of falling in the last 3 months, bb including since admission No falls in past 3 months (0 pts). Abuse screen: Denies threats or abuse. Nutritional screening: No deficits noted. Tuberculosis screening: No symptoms or risk factors identified. Assessment: 02:10 Reassessment: No changes from previously documented assessment. see triage assessment. bb 03:52 Reassessment: Patient is alert, oriented x 3, equal unlabored respirations, skin bb warm/dry/pink. pt verbalized understanding of and agrees to plan of care discharge instructions given pt ambulated with steady gait to exit. Vital Signs: 02:02 BP 124 / 69 RA Sitting (auto/lg); Pulse 76; Resp 16 S; Pulse Ox 100% on R/A; Weight mb4 101.15 kg (R); Height 5 ft. 10 in. (177.80 cm) (R); 03:52 BP 120 / 64; Pulse 92; Resp 16 S; Temp 98.6(O); Pulse Ox 100% on R/A; bb 02:02 Body Mass Index 32.00 (101.15 kg, 177.80 cm) mb4 ED Course: 01:19 Patient arrived in ED. ja2 01:37 Herman Burnett MD is Attending Physician. franco 01:47 Inserted saline lock: 20 gauge in left antecubital area, using aseptic technique. Blood mb4 collected. 01:47 Patient has correct armband on for positive identification. Placed in gown. Bed in low mb4 position. Call light in reach. Side rails up X 1. Client placed on continuous cardiac and pulse oximetry monitoring. NIBP monitoring applied. 01:47 Assisted to bathroom. mb4 01:54 Initial lab(s) drawn, by me, sent to lab. mb4 01:54 Lipase Sent. mb4 01:55 Basic Metabolic Panel Sent. mb4 01:55 CBC with Diff Sent. mb4 01:55 LFT's Sent. mb4 01:55 Magnesium Sent. mb4 01:55 NT PRO-BNP Sent. mb4 01:55 PT-INR Sent. mb4 01:55 Troponin HS Sent. mb4 02:08 Triage completed. bb 02:08 Arm band placed on Patient placed in an exam room, on a stretcher, on pulse oximetry. bb EKG completed in triage. Results shown to MD. 02:09 XRAY Chest (1 view) In Process Unspecified. EDMS 02:10 No provider procedures requiring assistance completed. Patient maintains SpO2 bb saturation greater than 95% on room air. 03:31 Shahid Luna MD is Referral Physician. [facility] 03:53 IV discontinued, intact, bleeding controlled, No redness/swelling at site. Pressure bb dressing applied. Administered Medications: 03:02 Drug: NS 0.9% 500 ml Route: IV; Rate: bolus; Site: left antecubital; bb 03:51 Follow up: IV Status: Completed infusion; IV Intake: 500ml bb Medication: 02:10 VIS not applicable for this client. bb Intake: 03:51 IV: 500ml; Total: 500ml. bb Outcome: 03:31 Discharge ordered by . [facility] 03:53 Discharged to home ambulatory. bb 03:53 Condition: stable 03:53 Discharge instructions given to patient, Instructed on discharge instructions, follow up and referral plans. medication usage, Demonstrated understanding of instructions, follow-up care, medications, Prescriptions given X 2. 03:53 Patient left the ED. bb Signatures: Dispatcher [employer] EDHerman Reed MD MD cha Ballard, Brenda, RN RN Carina Sarmiento mb4 Josee Rondon
[2022-11-15 04:24] VITALS: O2SAT 100
[2022-11-15 04:26] VITALS: BP 120/64; TEMP 98.6
--- NOTE | 2022-11-15 13:49 | RAD REPORT ---
EXAM DESCRIPTION: RAD - Chest Single View - 11/15/2022 2:07 am CLINICAL HISTORY: The patient is 22 years old and is Female; CHEST PAIN TECHNIQUE: Frontal view of the chest. COMPARISON: No relevant prior studies available. FINDINGS: Lungs: Unremarkable. No consolidation. Pleural space: Unremarkable. No pneumothorax. Heart: Unremarkable. Mediastinum: Unremarkable. Bones/joints: Unremarkable. IMPRESSION: No acute findings in the chest. 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 The interpreting radiologist is fully responsible for the content of the report.
--- NOTE | 2022-11-16 08:34 | EKG ---
Test Date: 2022-11-15 Test Time: 01:31:24 Casting Machine Set Up Operator: SHRUTHI MEASUREMENT RESULTS: Intervals: Rate: 71 OR: 150 QRSD: 80 QT: 382 QTc: 415 [place]: P: 55 OR: 150 QRS: 79 T: 55 INTERPRETIVE STATEMENTS: Normal sinus rhythm Normal ECG Compared to ECG 03/21/2021 04:32:41 No significant changes Electronically Signed On 11-16-22 08:31:20 DIRECTOR STRATEGY by Jakob Ventura
== END 2022-11-15 03:53 | disposition home or self-care (01) ==
LOC: ER 01:18
DX: R00.2 Palpitations (principal); F41.9 Anxiety disorder, unspecified
CPT/HCPCS: 36415; 71045; 80048; 80076; 81003; 81025; 83690; 83735; 83880; 84439; 84443; 84484; 85025; 85610; 93005; 96360; 99285; J7040

== ENCOUNTER 2024-05-06 22:23 | Emergency (ER) | payer SELFPAY ==
--- NOTE | 2024-05-07 08:58 | EDPHYS ---
Physician Documentation [facility] Name: Isaac Hollins Age: 23 yrs Sex: Female : 2000 Arrival Date: 05/06/2024 Time: 22:23 Bed IW1 Private MD: ED Physician Edwin Odom HPI: 05/07 00:00 This 23 yrs old Black Female presents to ER via Ambulatory with complaints of Foot cp Injury, Foot Pain. 00:00 The patient presents with an injury, pain. cp 00:00 The complaints affect the left foot. Context: the patient can partially bear weight, cp the patient is able to ambulate, with moderate difficulty, Problem is a result from a previous injury: No. while walking at work, ankle and foot got inverted. Onset: The symptoms/episode began/occurred today. Associated signs and symptoms: The patient has no apparent associated signs or symptoms. ROS: 00:05 MS/extremity: Positive for pain, of the left foot, Negative for paresthesias, cp 00:05 All other systems are negative, cp Exam: 00:10 Head/Face: Normocephalic, atraumatic. cp 00:10 Constitutional: The patient appears in no acute distress, alert, awake, non-toxic, well developed, well nourished, 00:10 Cardiovascular: Rate: normal, 00:10 Respiratory: the patient does not display signs of respiratory distress, 00:10 Abdomen/GI: Inspection: abdomen appears normal, 00:10 Back: pain, is absent, ROM is normal, 00:10 Musculoskeletal/extremity: Extremities: grossly normal except: noted in the left foot: pain and tenderness noted to medial side of mid foot, Pulses: noted to be 2+ in the left dorsalis pedis artery, the left foot Sensation intact. Vital Signs: 05/06 23:05 BP 112 / 65; Pulse 76; Resp 16; Temp 99.1; Pulse Ox 94% ; Weight 113.4 kg; Height 5 ft. cg 10 in. ; Pain 8/10; 23:05 Body Mass Index 35.87 (113.40 kg, 177.8 cm) cg 23:05 Pain Scale: Adult cg MDM: 23:08 Patient medically screened. cp 05/07 02:35 Data reviewed: vital signs, nurses notes. cp Administered Medications: No medications were administered Disposition Summary: 05/07/24 02:36 Eloped Notes: Disposition: after being seen by provider cp Problem: new cp Symptoms: are unchanged cp Reason: unknown cp Condition: Stable cp Diagnosis - Pain in left foot cp Followup: cp - With: Private Physician - When: 1 - 2 days - Reason: Recheck today's complaints Signatures: Dispatcher [employer] EDMS Herman Rondon PA PA cp Corrections: (The following items were deleted from the chart) 01:23 05/06 23:15 This 23 yrs old Black Female presents to ER via Ambulatory with complaints cp of Foot Injury, Foot Pain. cp 05/07 02:32 05/06 23:55 Foot Left 3 View ordered. EDMS EDMS
--- NOTE | 2024-05-07 08:58 | ER ---
Nurse's Notes [facility] Name: Isaac Hollins Age: 23 yrs Sex: Female : 2000 Arrival Date: 05/06/2024 Time: 22:23 Bed IW1 Private MD: Diagnosis: Pain in left foot Presentation: 05/06 23:05 Chief complaint: Patient states: Walking at work today and twisted left ankle/foot. cg Kept walking on it and pain got worse. Coronavirus screen: Vaccine status: Patient reports receiving the 2nd dose of the covid vaccine. Ebola Screen: Patient negative for fever greater than or equal to 101.5 degrees Fahrenheit, and additional compatible Ebola Virus Disease symptoms. Initial Sepsis Screen: Does the patient meet any 2 criteria? No. Patient's initial sepsis screen is negative. Risk Assessment: Do you want to hurt yourself or someone else? Patient reports no desire to harm self or others. Onset of symptoms was May 06, 2024. 23:05 Method Of Arrival: Ambulatory 23:05 Acuity: JANIE 3 cg Vital Signs: 23:05 BP 112 / 65; Pulse 76; Resp 16; Temp 99.1; Pulse Ox 94% ; Weight 113.4 kg; Height 5 ft. cg 10 in. ; Pain 8/10; 23:05 Body Mass Index 35.87 (113.40 kg, 177.8 cm) 23:05 Pain Scale: Adult cg ED Course: 22:26 Patient arrived in ED. gm2 22:27 Herman Rondon [facility]. cp 22:27 Edwin Odom MD is Attending Physician. cp 23:08 Triage completed. cg 23:46 Radiology exam delayed due to no patient response when named called in [facility] [employer] [place]. ml Administered Medications: No medications were administered Outcome: 05/07 01:00 Eloped from waiting room, vc1 Condition: good Discharge instructions given to eloped from [facility] 01:00 Patient left the ED. vc1 Signatures: Mickie Maddox Corey, PA PA cp Garcia, Cindy, RN RN cg Calcote, Vanessa, RN RN vc1 Shanta Ruiz gm2 Corrections: (The following items were deleted from the chart) 04:03 04:02 Patient left the ED. vc1 vc1
[2024-05-07 15:57] VITALS: BP 112/65; TEMP 99.1; O2SAT 94
== END 2024-05-07 04:02 | disposition left against medical advice (07) ==
LOC: ER 22:23
DX: M79.672 Pain in left foot (principal)